=== PATIENT | female | born 1960 | race Caucasian/White ===

== ENCOUNTER → 2022-05-23 | Outpatient (CLI) | payer BC, OTHER, SELFPAY ==
--- NOTE | 2022-05-23 10:05 | BI_ITS ---
MAMMOGRAPHY - BILATERAL SCREENING 3-D TOMOSYNTHESIS REASON FOR EXAM: Female, 61 years old. Routine screening PERTINENT HISTORY: No significant family history. History of hormone use TECHNIQUE: 2-D mammograms and 3-D Tomosynthesis of the breast (s) were performed. CAD was performed. COMPARISON: No comparison mammograms available at this time. If any prior films become available, an addendum to this report can be generated. FINDINGS: The breast composition is heterogeneously dense that can obscure small breast masses. Scattered benign calcifications are seen. No dense spiculated masses or suspicious microcalcifications are identified. No architectural distortion is identified. There is no skin thickening or retraction. BI/SCRN MAMM (CAD)W/DANDRE BILAT IMPRESSION: No mammographic signs of malignancy. Routine yearly mammograms recommended. ASSESSMENT CATEGORY: BIRADS Category 2: Benign. A letter regarding these results will be sent to the patient by the facility within 30 days. FOLLOW UP RECOMMENDATION: Yearly follow up mammogram recommended. (A) Approximately 10% of breast cancers are not detected by mammography. A normal mammogram should not delay biopsy of a clinically suspicious abnormality. Electronically Signed: Salazar Hernandez MD at 10:17 EDT ,
== END | disposition home or self-care (01) ==
LOC: OPBI 10:03
PROVIDERS: PCP Internal Medicine; Visit Provider Internal Medicine
DX: Z12.31 Encounter for screening mammogram for malignant neoplasm of breast (principal)
CPT/HCPCS: 77063; 77067

== ENCOUNTER 2022-06-07 17:56 | Emergency (ER) | payer BC, OTHER, SELFPAY ==
[2022-06-07 17:57] VITALS: BP 118/83; PULSE 70; RESP 14; TEMP 36.2; O2SAT 100; BMI 34.0
--- NOTE | 2022-06-07 18:00 | EKG12_ITS ---
Test Reason : PALPS Blood Pressure : / mmHG Vent. Rate : 061 BPM Atrial Rate : 061 BPM P-R Int : 152 ms QRS Dur : 080 ms QT Int : 420 ms P-R-T Axes : 012 003 008 degrees QTc Int : 422 ms Normal sinus rhythm Normal ECG Confirmed by DYLAN NOLASCO, PARVIZ ([id number]), avid editor ALHAJI NORMAN ([id number]) on 06/13/2022 6:54:36 AM Referred By: PATTIE Confirmed By:FRANCIS RICHARDSON MD
[2022-06-07 18:52] VITALS: BP 122/56; PULSE 69; RESP 18; O2SAT 96
[2022-06-07 19:43] LABS: Absolute Neutrophil Count 5.2 X10^3/uL (2.0-7.7); Basophil# 0.07 X10^3/uL; Basophil% 0.8 % (0-1); Eosinophils% 2.3 % (0-5); Hematocrit 40.9 % (37-47); Hemoglobin 13.4 g/dL (12.0-15.0); Mean Corp Hgb Conc 32.8 g/dL (32-36); Mean Corpuscular Hgb 29.1 pg (27.0-32.0); Mean Corpuscular Volume 88.7 fL (81-99); Mean Platelet Vol. 9.4 fl (6.2-12.0); NRBC Flagged by Analyzer 0 % (0-5); Neutrophil # 5.23 X10^3/uL (2.7-7.7); Neutrophil % 60.6 % (47-70); Platelet Count 239 K/mm3 (150-450); RBC Distribution Width CV 12.7 % (11.6-14.6); RBC Distribution Width SD 41.2 fl (35.1-43.9); Red Blood Count 4.61 M/mm3 (4.2-5.4); White Blood Count 8.6 K/mm3 (4.4-11.0)
--- NOTE | 2022-06-07 19:45 | RAD_ITS ---
INDICATION: palpitations EXAMINATION/TECHNIQUE: X-RAY - XR Chest 1 View COMPARISON: None. FINDINGS: The lungs are clear. Tortuous and calcified thoracic aorta. The heart is borderline enlarged. No pleural effusion or pneumothorax. Degenerative changes of the thoracic spine. RAD/Chest 1 View (Portable) IMPRESSION: No acute radiographic abnormalities. Electronically Signed: Mason Todd MD at 20:10 EDT ,
[2022-06-07 20:01] LABS: D-Dimer Quantitative (DVT/PE) < 0.27 FEU/ug/m (0.27-0.49)
[2022-06-07 20:07] LABS: Anion Gap 4 (5-15); BUN 22 mg/dL (7-18); BUN/Creat Ratio 26.1 RATIO (10-20); Calcium,Total 8.2 mg/dL (8.5-10.1); Chloride 105 mmol/L (98-107); Creatinine, Serum 0.84 mg/dL (0.55-1.02); EST Glomerular Filtration Rate 73 mL/min (>60); Est Glom Filt Rate - Afr Amer 89 mL/min (>60); Estimated Creatinine Clearance 64.89 ml/min; Glucose 100 mg/dL (74-106); Potassium 3.6 mmol/L (3.5-5.1); Sodium Level 138 mmol/L (136-145); Thyroid Stim Hormone (TSH) 2.34 uIU/mL (0.358-3.74); Troponin-I HS (w/2H Reflex) 5 pg/mL (3.0-54.0)
[2022-06-07 20:12] VITALS: BP 114/65; PULSE 60; RESP 16; O2SAT 98
[2022-06-07] MEDS: 0.9% Normal Saline 1,000 ML 150 ML IV (20:21)
--- NOTE | 2022-06-07 20:41 | EDS_ITS ---
HPI History of Present Illness Chief Complaint: Palpitations Informant: patient Narrative Narrative: Patient presents secondary to increased frequency of palpitations. She is been having palpitations for the last month or so. She has been told that she has frequent PVCs. She is scheduled for a Holter monitor this Monday and will wear it for 48 hours. Today she felt that they were more frequent and felt lightheaded while she was sitting. She has not had syncopal episode. She has some slight chest pressure. [facility] Medical History Endometriosis Tom's disease Obstructive sleep apnea Home Medications CLA PO 04/28/22 [History Last Taken Unknown] cholecalciferol (vitamin D3) 50 mcg (2,000 unit) capsule 50 mcg PO DAILY 04/28/22 [History Last Taken Unknown] L.acid,andre-B.animal,bifid,infant 50 billion cell capsule,delayed rel ([employer] [place] [facility] Probiotic) 1 cap PO DAILY 05/16/22 [History Last Taken Unknown] digestive enzymes 1 cap PO DAILY 05/16/22 [History Last Taken Unknown] estradiol 0.01% (0.1 mg/gram) vaginal cream 1 appful vaginal 2XW 05/16/22 [Hi story Last Taken Unknown] prasterone (dhea) 25 mg capsule (DHEA) 5 mg PO DAILY 05/16/22 [History Last Taken Unknown] tolterodine 4 mg capsule,extended release 24 hr (Detrol LA) 4 mg PO DAILY #30 caps 05/17/22 [Rx Last Taken Unknown] Allergy/AdvReac Type Severity Reaction Status Date / Time No Known Allergies Allergy Verified 06/07/22 18:53 Family History Father COPD (chronic obstructive pulmonary disease) Parkinson disease Mother Diabetes Myocardial infarction Hypertension Osteoarthritis CVA (cerebral vascular accident) Sister Hyperlipidemia Cervical cancer Lung cancer Grandmother CVA (cerebral vascular accident) Grandfather Myocardial infarction Heart disease Other Arthritis Asthma High cholesterol Respiratory disease Surgical History History of right salpingo-oophorectomy S/P correction of deviated nasal septum S/P laparoscopic hysterectomy Social History household members: spouse current occupational status: employed 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 Smoking Status: Never smoker Electronic Cigarette Use: not used alcohol intake: current alcohol intake frequency: a few times a week Alcohol type: wine substance use type: does not use what type of physical activity do you participate in: none seatbelt use: always do you feel safe at home: Yes ROS ROS ED Constitutional Constitutional ED: Denies chills or fever(s) Eyes Eyes: Denies change in vision or discharge from eye(s) ENT ENT ED: Denies discharge from eye(s), rhinorrhea or sore throat Cardiovascular Cardiovascular: Reports chest pain and palpitations Respiratory/Chest Respiratory/Chest: Denies cough or dyspnea Gastrointestinal Gastrointestinal: Denies abdominal pain, nausea or vomiting Genitourinary Genitourinary ED: Denies dysuria Musculoskeletal Musculoskeletal: Denies back pain or extremity pain Integumentary Denies Abrasions or rash Neurologic Neurologic: Denies headache(s) or weakness Psychiatric Psychiatric: Denies anxiety or depression Endocrine Endocrinology: Denies polydipsia or polyuria Allergic/Immunologic Allergic/Immunologic ED: Denies lip swelling or urticaria EXAM Physical Exam Const Vital Signs: 06/07/22 17:57 06/07/22 18:52 06/07/22 18:53 Temperature 97.2 F L Temperature Source Temporal Pulse Rate 70 69 Respiratory Rate 14 18 Respiratory Effort Normal Non-Labored Blood Pressure 118/83 H 122/56 H Blood Pressure Mean 94 78 Pulse Ox 100 96 Oxygen Delivery Method Room Air Room Air 06/07/22 20:12 Temperature Temperature Source Pulse Rate 60 Respiratory Rate 16 Respiratory Effort Blood Pressure 114/65 Blood Pressure Mean 81 Pulse Ox 98 Oxygen Delivery Method Room Air Positive well nourished and well developed General Appearance ED: well developed HEENT Reports normocephalic and head/scalp atraumatic Eyes PERRL and EOMs intact bilaterally Neck supple Chest Wall inspection of chest normal and palpation of chest normal Resp normal respiratory effort and clear to auscultation bilaterally Cardio regular rate and regular rhythm GI normal to inspection, nondistended, normoactive bowel sounds Palpation: soft Extremity normal to inspection Neuro oriented x3 and no sensory deficits noted Sensorium / Orientation: alert Motor Exam: strength 5/5 throughout Psych mental status grossly normal Skin no rashes or lesions noted MDM MDM MDM Narrative Medical decision making narrative: Patient placed on gambling monitor. EKG obtained to evaluate for cardiac arrhythmia/ischemia. Labwork obtained to evaluate for leukocytosis, anemia, and electrolyte derangement. Chest x-ray obtained to evaluate for acute lung pathology, cardiac size, or mediastinal abnormality. Lab Data Attestation: I reviewed the patient's lab results. Labs: Laboratory Results - last 24 hr 06/07/22 06/07/22 06/07/22 19:36 19:36 19:36 WBC 8.6 RBC 4.61 Hgb 13.4 Hct 40.9 MCV 88.7 MCH 29.1 MCHC 32.8 RDW Std Deviation 41.2 RDW Coeff of Shai 12.7 Plt Count 239 MPV 9.4 Immature Gran % (Auto) 0.300 Neut % (Auto) 60.6 Lymph % (Auto) 29.0 Preble % (Auto) 7.0 Eos % (Auto) 2.3 Baso % (Auto) 0.8 Absolute Neuts (auto) 5.2 Absolute Lymphs (auto) 2.50 Nucleated RBC % 0 D-Dimer Quant (PE/DVT) < 0.27 L Sodium 138 Potassium 3.6 Chloride 105 Carbon Dioxide 29.0 Anion Gap 4 L BUN 22 H Creatinine 0.84 Estim Creat Clear Calc 64.89 Est GFR (MDRD) Af Amer 89 Est GFR (MDRD) Non-Af 73 BUN/Creatinine Ratio 26.1 H Glucose 100 Calcium 8.2 L Troponin I High Sens 5 TSH 2.34 Radiography Diagnostic Testing: Clinical Impression(s) from Imaging Studies Chest X-Ray 06/07/22 19:45 IMPRESSION: No acute radiographic abnormalities. Electronically Signed: Mason Todd MD at 20:10 EDT , EKG Initial EKG: Attestation: I personally reviewed and interpreted this EKG as follows: Interpretation: Sinus Rhythm (Sinus at 61 with no acute ischemia.) Differential Diagnosis Chest pain/SOB: pulmonary embolism Reason(s) PE less likely: Positive for D- Dimer negative, not tachycardic and not hypoxic and ACS ACS: Positive for no evidence of ACS based on cardiac biomarkers and EKG without ischemia Treatment and Re-Evaluation :: I did review the patient's gambling monitor from her stay in the ED. I do not see significant PVCs at this time. Patient states she has not really felt much in the way of palpitations since arrival. EKG is sinus with no acute ischemia. Normal intervals. CBC and chemistry studies are unremarkable. Troponin, TSH, and D-dimer are all normal. Patient is reassured with these findings. She will follow-up on Monday for Holter monitor placement as planned. Return instructions are given. Discharge Plan Triage Chief Complaint: Palpitations ED Provider: Gerri Castro Dx/Rx/DC Orders Clinical Impression: Palpitations Instructions: ED Palpitations Prescriptions: No Action [employer] [place] [facility] Probiotic 50 billion cell capsule,delayed release(DR/EC) 1 cap PO DAILY digestive enzymes Capsule 1 cap PO DAILY Rx Instructions: administer with food; swallow whole; do not crush/chew/dissolve/break/cut CLA PO Label Comments: OTC supplement- conjugated linoleic acid cholecalciferol (vitamin D3) 50 mcg (2,000 unit) capsule 50 mcg PO DAILY prasterone (dhea) [DHEA] 25 mg capsule 5 mg PO DAILY estradiol 0.01 % (0.1 mg/gram) cream 1 appful vaginal 2XW Rx Instructions: for 14 days tolterodine [Detrol LA] 4 mg capsule,extended release 24hr 4 mg PO DAILY Qty: 30 1RF Primary Care Provider: Radha David Referrals: Radha David MD [Primary Care Provider] - Activity Restrictions/Additional Instructions: Follow-up on Monday for your Holter monitor as planned. Disposition Disposition: Home, Self Care
[2022-06-07 20:49] VITALS: BP 127/67; PULSE 66; RESP 16; O2SAT 96
[2022-06-07 21:41] LABS: Reflex Troponin-HS? (from REC) Y
== END 2022-06-07 20:56 | disposition home or self-care (01) ==
PROVIDERS: Emergency Provider Emergency Medicine; PCP Internal Medicine; Visit Provider Emergency Medicine
DX: R00.2 Palpitations (principal); Z90.721 Acquired absence of ovaries, unilateral; Z90.710 Acquired absence of both cervix and uterus
CPT/HCPCS: 71045; 80048; 84443; 84484; 85025; 85379; 93005; 99284; J7030; A4216

== ENCOUNTER → 2022-06-14 | Outpatient (CLI) | payer BC, OTHER, SELFPAY | END | disposition home or self-care (01) | LOC: PSN 07:53 | PROVIDERS: PCP Internal Medicine; Referring Provider Internal Medicine; Visit Provider Internal Medicine | DX: R00.2 Palpitations (principal) | CPT/HCPCS: 93225; 93226 ==

== ENCOUNTER → 2022-06-29 | Outpatient (CLI) | payer BC, OTHER, SELFPAY ==
[2022-06-29 13:42] LABS: Insulin 11.8 mU/L (2.6-37.6); Progesterone Level 0.33 ng/mL (See Comment); Vitamin D,25 Hydroxy 31.9 ng/mL
[2022-06-29 13:46] LABS: ALB/GLOB Ratio 1.2 RATIO (0.9-2.4); AST(SGOT) 14 U/L (15-37); Alanine Aminotransfer ALT/SGPT 27 U/L (13-56); Albumin, Serum 3.9 g/dL (3.2-5.0); Alkaline Phosphatase 78 U/L (45-117); Anion Gap 4 (5-15); BUN 19 mg/dL (7-18); BUN/Creat Ratio 26.3 RATIO (10-20); Calcium,Total 8.8 mg/dL (8.5-10.1); Chloride 104 mmol/L (98-107); Creatinine, Serum 0.72 mg/dL (0.55-1.02); EST Glomerular Filtration Rate 88 mL/min (>60); Est Glom Filt Rate - Afr Amer 106 mL/min (>60); Estradiol 29.6 pg/mL; Ferritin 73 ng/mL (8-252); Free T3 2.4 pg/mL (2.18-3.98); Globulin 3.3 g/dL (2.2-4.2); Glucose 96 mg/dL (74-106); Potassium 4.3 mmol/L (3.5-5.1); Protein, Total 7.2 g/dL (6.4-8.2); Sodium Level 134 mmol/L (136-145); T4 Free Direct 0.95 ng/dL (0.76-1.46)
[2022-07-01 22:07] LABS: Sex Hormone-binding Globulin 39.3 nmol/L (17.3-125.0); Testosterone, % Free 1.12 % (0.50-2.80); Testosterone, Free 0.29 ng/dL (0.10-0.85); Testosterone, Total 26 ng/dL (4-50)
== END | disposition home or self-care (01) ==
PROVIDERS: PCP Internal Medicine
DX: N95.1 Menopausal and female climacteric states (principal); R53.83 Other fatigue; E06.3 Autoimmune thyroiditis
CPT/HCPCS: 36415; 80053; 82306; 82627; 82670; 82728; 83525; 84144; 84270; 84402; 84403; 84439; 84481; 82626

== ENCOUNTER → 2022-08-11 | Outpatient (CLI) | payer BC, OTHER, SELFPAY ==
[2022-08-11 15:45] LABS: Iron 77 ug/dL (50-170); Iron Binding Capacity,Total 305 ug/dL (250-450); PERCENT IRON SATURATION 25.2 % (15.0-55.0)
== END | disposition home or self-care (01) ==
LOC: BIMLAB 12:24
PROVIDERS: PCP Internal Medicine; Visit Provider Internal Medicine
DX: E06.3 Autoimmune thyroiditis (principal)
CPT/HCPCS: 36415; 83540; 83550

== ENCOUNTER → 2023-03-14 | Outpatient (CLI) | payer OTHER, SELFPAY ==
--- OUTSIDE RECORDS SUMMARY | 2023-03-14 08:46 | XMS RPT_ITS | CCD ---
Author Name Unknown Address [address] [place] [address] Organization [facility] Care Team Providers Care Mortgage Loan Specialist Name Role Phone Abilio Lopez Unavailable ABILIO LOPEZ Unavailable Unavailable Jessica, Abilio Simmons Unavailable Unavailable EILEIA, ABILIO SIMMONS Unavailable Unavailable Eiden, Abilio Simmons Unavailable Unavailable MANNINGMARIBEL OGDENISTINE R Unavailable Unavailable Eiden, Abilio Simmons Unavailable Unavailable MANNING, ZACHERY R Unavailable Unavailable EiAbilio winkler Unavailable Unavailable Abilio Lopez Unavailable Unavailable EILEIA, ABILIO SIMMONS Unavailable Unavailable Cuca Pena Unavailable Unavailable WESLEY ELLIS Attending Unavail able ABILIO LOPEZ Primary Care Unavailable TAYLOR CASTREJON Referring Unavailable TAYLOR CASTREJON Primary Care Unavailable TAYLOR CASTREJON Primary Care Unavailable Abilio Lopez Primary Care Provider PHYSICIAN, NONE Primary Care Physician UnavailJOE Miller MD Attending Unavailable PHYSICIAN, NONE Primary Care Unavailable DORI LARIOS MD Attending Unavaila ble PHYSICIAN, NONE Primary Care Unavailable WOOD CAM Attending Unavailabl e PHYSICIAN, NONE Primary Care Unavailable DORI LARIOS MD Attending Unavaila ble PHYSICIAN, NONE Primary Care Unavailable DORI LARIOS MD Attending Unavaila ble PHYSICIAN, NONE Primary Care Unavailable Allergies Allergy Classification Reported Allergen(s) Allergy Type Date of Onset Reaction(s) Facility (4 sources) Latex Allergy to substance skin irritation [facility] Work Phone: Medications Current Medications Medication Drug Class(es) Dates Sig (Normalized) Sig (Original) acetaminophen 325 mg / butalbital 50 mg / caffeine 40 mg oral tablet (2 sources) Barbiturate, Central Nervous System Stimulant, Methylxanthine take 1 tablet by mouth every four hours as needed butalbital-aceta minophen-caffein e (FIORICET, ESGIC) 50-325-40 mg per tablet Indications: 's med-gave patient one & then had emesis shortly afterwards Take 1 tablet by mouth every 4 (four) hours as needed for pain. 0 Active ascorbic acid 1000 mg oral tablet (2 sources) take 1 tablet by mouth once daily ascorbic acid, vitamin C, (vitamin C) 1000 MG tablet Take 1,000 mg by mouth daily. 0 Active citalopram 20 mg oral tablet (2 sources) Serotonin Reuptake Inhibitor citalopram (CELEXA) 20 MG tablet Take 30 mg by mouth daily. 0 Active estradiol 0.1 mg/ml vaginal cream (5 sources) Estrogen Start: 04-29-2021 Estrace Vaginal 0.1 mg/g vaginal cream 0.1 mg, Vaginal, 2X/week, # 42.5 gram(s), 0 Refill(s), Pharmacy: [facility], Vaginal dryness, menopausal, 167, cm, 07/01/21 10:37:00 EDT, Height Start Date: 08/20/21 Status: Ordered Hair, skin and Nails Multiple Vitamins with Minerals oral tablet (1 source) Start: 07-01-2021 take 1 tablet by mouth once daily Hair, skin and Nails Multiple Vitamins with Minerals oral tablet Oral, qDay, 0 Refill(s) Start Date: 07/01/21 Status: Ordered herbal/nutritional product (6 sources) Start: 02-12-2021 herbal/nutrition al product Super Enzymes, 0 Refill(s) Start Date: 02/12/21 Status: Ordered Completed/Discontinued Medications Medication Drug Class(es) Dates Sig (Normalized) Sig (Original) Diphenhydramine 50 Mg/Ml Injection Solution (1 source) Histamine-1 Receptor Antagonist Start: 05-29-2017 End: 05-29-2017 diphenhydrAMINE (BENADRYL) injection 50 mg 1 ml ketorolac tromethamine 30 mg/ml injection (1 source) Nonsteroidal Anti-inflammatory Drug, Cyclooxygenase Inhibitor Start: 05-29-2017 End: 05-29-2017 ketorolac (TORADOL) injection 30 mg ondansetron 4 mg disintegrating oral tablet (1 source) Serotonin-3 Receptor Antagonist Start: 05-29-2017 End: 05-29-2017 ondansetron (ZOFRAN-ODT) disintegrating tablet 4 mg Problems Problem Classification Problem Date Documented Da te Episodic/Chronic Other lower respiratory disease (1 source) Snoring 10-21-2021 Episodic Residual codes; unclassified (3 sources) Increased body mass index 04-29-2021 Episodic Residual codes; unclassified (3 sources) Postmenopausal state 04-29-2021 Episodic Thyroid disorders (6 sources) Tom thyroiditis; Translations: [Subclinical hypothyroidism] 04-29-2021 Chronic Results Test Name Value Interpretation Reference Range Facil ity Vital Signs Date Time Vital Sign Value Performing Clinician Nancy rodrigez 05-29-2017 23:49-0400 Body Temperature 97.3 [degF] [facility] 05-29-2017 23:49-0400 BP Diastolic 69 mm[Hg] [facility] 05-29-2017 23:49-0400 BP Systolic 144 mm[Hg] [facility] 05-29-2017 23:49-0400 Pulse (Heart Rate) 62 /min [facility] 05-29-2017 23:49-0400 Pulse Oximetry 98 % [facility] 05-29-2017 23:49-0400 Respiratory Rate 18 /min [facility] 05-29-2017 22:25-0400 BMI (Body Mass Index) 34.62 kg/m2 [facility] 05-29-2017 22:25-0400 Height 167.6 cm [facility] 05-29-2017 22:25-0400 Weight 97.3 kg [facility] Encounters Encounter Date Encounter Type Care Provider Facility Start: 11-26-2021 End: 11-27-2021 ambulatory WOOD MARI Facility:B Start: 11-26-2021 End: 11-26-2021 Patient encounter procedure WOOD MARI [facility] Start: 10-19-2021 End: 10-20-2021 ambulatory DORI LARIOS MD Facility:[facility] Start: 10-19-2021 End: 10-19-2021 Patient encounter procedure DORI LARIOS MD [facility] Start: 07-01-2021 End: 07-02-2021 ambulatory DORI LARIOS MD Facility:[facility] Start: 06-23-2021 End: 06-24-2021 ambulatory DORI LARIOS MD Facility:[facility] Start: 06-23-2021 End: 06-23-2021 Patient encounter procedure DORI LARIOS MD [facility] Start: 03-19-2021 End: 03-20-2021 ambulatory JOE MESSER MD Facility:[facility] Start: 03-19-2021 End: 03-19-2021 Patient encounter procedure JOE MESSER MD [facility] Start: 05-20-2020 End: 05-20-2020 Orders Only Arlene Amanda Lackey Work Phone: [facility] Start: 05-09-2019 Patient encounter procedure TAYLOR L [facility] Start: 05-09-2019 End: 05-09-2019 Patient encounter procedure TAYLOR L [facility] Start: 12-14-2017 Patient encounter ABILIO Armendariz Facility:[facility] Start: 10-30-2017 End: 10-31-2017 Patient encounter Abilio Lopez Facility:[facility] Start: 10-03-2017 End: 10-04-2017 Patient encounter ZACHERY MANNING Facility:[facility] Start: 06-15-2017 End: 06-16-2017 Patient encounter ABILIO LOPEZ Facility:[facility] Start: 05-30-2017 End: 05-30-2017 Emergency department patient visit [facility] Start: 05-29-2017 End: 05-29-2017 Emergency department patient visit Wesley Ellis Work Phone: [facility] Emergency Department Procedures Date Procedure Procedure Detail Performing Clinician Start: 06-07-2003 Laparoscopic-assiste d vaginal hysterectomy JOE MESSER MD Start: 03-13-2001 Deviated nasal septu m (disorder) JOE MESSER MD Start: 03-13-1998 Right salpingo-oophorectomy JOE MESSER MD Payers Date Payer Category Payer Unknown [id number] 2021 Unknown [id number] 2021 Self-pay 2019 Unknown [id number] 2017 Unknown [id number] [address] [facility] [employer] [id number] 2017-Present [id number] 2016 Unknown 1960 Unknown [id number] 1960 Unknown [id number] 1960 Unknown [id number] 1960 Unknown [id number] 1960 Unknown [id number] 1960 Unknown [id number] 1960 Unknown [id number] 1960 Unknown [id number] Unknown [id number] Social History Date Type Detail Facility Start: 05-29-2017 End: 02-12-2021 Tobacco smoking status PAIS Never smoker [facility] Sex Assigned At Not on file [facility] Start: 05-29-2017 Tobacco use and exposure Never used [facility] Start: 05-29-2017 Alcohol intake Current drinke r of alcohol (finding) [facility] Start: 05-29-2017 Alcohol Comment rarely wine [facility] Sex Assigned At [facility] Evaluation + Plan note 11-26-2021 Laboratory Note Date & Type Note Facility 11-26-2021 Evaluation + Plan note Diagnostic Tests PendingReverse T3 11/26/21Estrone Level 11/26/21Leptin 11/26/21MISC Lab Send out (Blood Specimens) 11/26/21Insulin Antibody 11/26/21Dihydrotestosterone Level 11/26/21Thyroglobulin 11/26/21Testosterone, Free and Total 11/26/21 Future Scheduled TestsThyroid Stimulating Hormone 02/20/22Free T4 02/20/22Complete Metabolic Panel 02/20/22anti-Thyroid Peroxidase 02/20/22 [facility] Evaluation + Plan note Note Date & Type Note Facility Evaluation + Plan note Future Appointments Appointment Date:04/02/2021 10:30:00 AM Scheduled Provider:JOE MESSER MD Location:[facility] Appointment Type:[facility] Diagnostic Tests PendingDHEA Unconjugated 03/19/21 [facility] Evaluation + Plan note Note Date & Type Note Facility Evaluation + Plan note Future Appointments Appointment Date:07/01/2021 10:30:00 AM Scheduled Provider:DORI LARIOS MD Location:[facility] Appointment Type:[facility] Evaluation + Plan note Note Date & Type Note Facility Evaluation + Plan note Future Appointments Appointment Date:10/21/2021 10:15:00 AM Scheduled Provider:DORI LARIOS MD Location:[facility] Appointment Type:[facility] Diagnostic Tests PendingVitamin D Level 10/19/21 [facility] Hospital course Narrative Note Date & Type Note Facility Hospital course Narrative No data available for this section [facility] Hospital Discharge instructions Note Date & Type Note Facility Hospital Discharge instructions No data available for this section [facility] Progress note Note Date & Type Note Facility Progress note No data available for this section [facility] Assessments Diagnosis Episodic tension-type headac he, not intractable - Primary Summary Purpose Family History No Family History Records FoundNo Family History Records FoundNo Family History Records FoundNo Family History Records FoundNo Family History Records FoundNo Family History Records Found Advance Directives No Advanced Directives Records FoundNo Advanced Directives Records FoundNo Advanced Directives Records FoundNo Advanced Directives Records FoundNo Advanced Directives Records FoundNo Advanced Directives Records Found Additional Source Comments ED Notes - Krystle Whitlock RN - 05/29/2017 11:49 PM EDTED Notes - Krystle Garcia RN - 05/29/2017 11:40 PM EDTED Notes - Krystle Whitlock RN - 05/29/2017 11:06 PM EDT Miscellaneous Notes (unrecog nized section and content) Feels ready to go home , headache is / now.Earlier was -08/20 Dr. Ellis talks with patient & at bedside. at bedside , good support for patient. Dr. Ellis sees patient in room. Formatting of this note may be different from the original. ED PROVIDER NOTE [facility] NAME: Riley Forbes AGE: 56 y.o. : 1960 VISIT DATE: 05/29/2017 CSN: [id number] PCP: Abilio Lopez MD Chief Complaint Patient presents with Headache frontal headache with throbbing/pounding -- started today at 1730 with of son age 25 years unexpected today, at bedside, no hx of migraine headaches History provided by: Patient Headache Pain location: Frontal Chronicity: New Duration: 6 hours Quality: Sharp Onset quality: Sudden Severity currently: 10/10 Severity at highest: 10/10 Timing: Constant Progression: Unchanged Similar to prior headaches: no Context: activity, bright light, emotional stress and loud noise Relieved by: Nothing Worsened by: Light and sound Ineffective treatments: fioricet but threw up. Associated symptoms: nausea and photophobia Associated symptoms: no fever History reviewed. No pertinent past medical history. Past Surgical History: Procedure Laterality Date HYSTERECTOMY SINUS SURGERY History reviewed. No pertinent family history. Social History Social History Marital status: Spouse name: N/A Number of children: N/A Years of education: N/A Occupational History Not on file. Social History Main Topics Smoking status: Never Smoker Smokeless tobacco: Never Used Alcohol use Yes Comment: rarely wine Drug use: No Sexual activity: Not on file Other Topics Concern Not on file Social History Narrative No narrative on file Previous Medications ASCORBIC ACID, VITAMIN C, (VITAMIN C) 1000 MG TABLET Take 1,000 mg by mouth daily. [id number]-[id number] (FIORICET, ESGIC) 50-325-40 MG PER TABLET Take 1 tablet by mouth every 4 (four) hours as needed for pain. CITALOPRAM (CELEXA) 20 MG TABLET Take 30 mg by mouth daily. MULTIVITAMIN (THERAGRAN) PER TABLET Take 1 tablet by mouth daily. No Known Allergies Review of Systems Constitutional: Negative. Negative for activity change and fever. HENT: Negative. Eyes: Positive for photophobia. Respiratory: Negative. Cardiovascular: Negative. Gastrointestinal: Positive for nausea. Genitourinary: Negative. Musculoskeletal: Negative. Skin: Negative for color change, pallor, rash and wound. Allergic/Immunologic: Negative. Neurological: Positive for headaches. Psychiatric/Behavioral: Negative. All other systems reviewed and are negative. Patient Vitals for the past 24 hrs: BP Temp Temp src Pulse Resp SpO2 Height Weight 05/29/17 2225 (!) 157/71 (!) 96.4 ?F (35.8 ?C) Temporal (!) 54 18 99 % 5' 6 97.3 kg (214 lb 8.1 oz) Physical Exam Constitutional: She is oriented to person, place, and time. She appears well-developed and well-nourished. HENT: Head: Normocephalic and atraumatic. Eyes: Conjunctivae and EOM are normal. Pupils are equal, round, and reactive to light. Neck: Normal range of motion. Neck supple. Cardiovascular: Normal rate. Pulmonary/Chest: Effort normal. Abdominal: Soft. She exhibits no distension. There is no tenderness. Musculoskeletal: Normal range of motion. Neurological: She is alert and oriented to person, place, and time. Skin: Skin is warm. Psychiatric: She has a normal mood and affect. Her behavior is normal. Nursing note and vitals reviewed. Laboratory & Radiographic Imaging (if done): No results found for this visit on 05/29/17. No orders to display Procedures MDM The patient has been informed that they may have pre-hypertension or hypertension based on a blood pressure reading in the Emergency Department. I recommend that the patient call the primary care provider listed on their discharge instructions or a physician of their choice as soon as possible to arrange follow-up in the next 4 weeks for further evaluation of possible pre-hypertension or hypertension. . Clinical Impression: SNOMED CT(R) 1. Episodic tension-type headache, not intractable EPISODIC TENSION-TYPE HEADACHE Follow-up Information 1. Abilio Lopez MD. Specialty: Family Medicine [address] [place] [id number] Contact information for after-discharge care Follow-up information has not been specified. New Prescriptions No medications on file (Please note that portions of this note may have been completed with a voice recognition software. Efforts were made to correct any errors, but occasionally words are mis-transcribed.) Wesley Ellis MD 05/29/17 2344 Darkened room, Icebag obtained for patient's forehead, warm blankets for body. Dad verbalized that he had a feeling about son today ; did not answer phone today or yesterday. So got keys from to check apartment / place where son was living & found him today. Then verbalized that it was from drugs, stated that they had been through everything. Sad. Patient sheds tears at intervals.in this encounter INFORMATION SOURCE (unrecogn ized section and content) DATE CREATED AUTHOR 'S RACHELLE TELLEZ 10/03/2018 [facility] DATE CREATED AUTHOR AUTHOR'S ORGANIZ ATION 12/23/2018 [facility] DATE CREATED AUTHOR AUTHOR'S ORGANIZ ATION 05/09/2019 [facility] DATE CREATED AUTHOR AUTHOR'S ORGANIZ ATION 11/01/2019 [facility] DATE CREATED AUTHOR AUTHOR'S ORGANIZ ATION 12/22/2021 [facility] [place] [facility] ([place]) Care Team (unrecognized sect ion and content) Care Team Personnel Name: PHYSICIAN, NONE Position: Physician Member Role: Primary Care Physician Care Team Related Persons Name: YULIYA FORBES Care Team Personnel Name: PHYSICIAN, NONE Position: Physician Member Role: Primary Care Physician Care Team Related Persons Name: YULIYA FORBES FOR RECORDS PERTAINING TO PATIENTS WHO ARE OR HAVE BEEN ENROLLED IN A CHEMICAL DEPENDENCY/SUBSTANCEABUSE PROGRAM, SOME INFORMATION MAY BE OMITTED. This clinical summary was aggregated from multiple sources. Caution should be exercised in using it in the provision of clinical care. This summary normalizes information from multiple sources, and as a consequence, information in this document may materially change the coding, format and clinical context of patient data. In addition, data may be omitted in some cases. CLINICAL DECISIONS SHOULD BE BASED ON THE PRIMARY CLINICAL RECORDS. [facility] [employer] provides no warranty or guarantee of the accuracy or completeness of information in this document.
[2023-03-14 12:22] LABS: Absolute Lymphocyte Count 1.49 X10^3/uL (0.83-4.51); Absolute Neutrophil Count 2.7 X10^3/uL (2.0-7.7); Basophil# 0.09 X10^3/uL; Basophil% 1.8 % (0-1); Eosinophil# 0.14 X10^3/uL; Eosinophils% 2.9 % (0-5); Hematocrit 41.1 % (37-47); Hemoglobin 13.5 g/dL (12.0-15.0); Lymphocyte # 1.49 X10^3/ul (0.83-4.51); Lymphocyte % 30.5 % (19-41); Mean Corp Hgb Conc 32.8 g/dL (32-36); Mean Corpuscular Volume 88.4 fL (81-99); Mean Platelet Vol. 9.4 fl (6.2-12.0); Monocyte# 0.41 X10^3/uL; Monocyte% 8.4 % (0-10); NRBC Flagged by Analyzer 0 % (0-5); Neutrophil # 2.73 X10^3/uL (2.7-7.7); Platelet Count 257 K/mm3 (150-450); RBC Distribution Width CV 12.6 % (11.6-14.6); RBC Distribution Width SD 40.8 fl (35.1-43.9); Red Blood Count 4.65 M/mm3 (4.2-5.4); White Blood Count 4.9 K/mm3 (4.4-11.0)
[2023-03-14 12:54] LABS: ALB/GLOB Ratio 1.1 RATIO (0.9-2.4); AST(SGOT) 24 U/L (15-37); Alanine Aminotransfer ALT/SGPT 47 U/L (13-56); Albumin, Serum 3.7 g/dL (3.2-5.0); Alkaline Phosphatase 89 U/L (45-117); Anion Gap 6 (5-15); BUN 11 mg/dL (7-18); BUN/Creat Ratio 16.2 RATIO (10-20); Calcium,Total 8.3 mg/dL (8.5-10.1); Chloride 108 mmol/L (98-107); Cholesterol 130 mg/dL (200); Creatinine, Serum 0.68 mg/dL (0.55-1.02); EST Glomerular Filtration Rate 94 mL/min (>60); Est Glom Filt Rate - Afr Amer 113 mL/min (>60); Globulin 3.4 g/dL (2.2-4.2); Glucose 99 mg/dL (74-106); High Density Lipoprotein 56 mg/dL; Protein, Total 7.1 g/dL (6.4-8.2); Sodium Level 140 mmol/L (136-145); Thyroid Stim Hormone (TSH) 2.83 uIU/mL (0.358-3.74); Triglycerides 85 mg/dL; Very Low Density Lipoprotein 17 mg/dL (5-40)
[2023-03-14 12:56] LABS: T3 Total - Triiodothyronine 1.22 ng/mL (0.6-1.81)
== END | disposition home or self-care (01) ==
LOC: BIMLAB 08:16
PROVIDERS: PCP Internal Medicine; Visit Provider Internal Medicine
DX: E06.3 Autoimmune thyroiditis (principal); N32.81 Overactive bladder; Z13.6 Encounter for screening for cardiovascular disorders
CPT/HCPCS: 36415; 80053; 80061; 84439; 84443; 84480; 85025